=== PATIENT | male | born 1965 | race Caucasian/White ===

== ENCOUNTER 2017-01-15 13:38 | Day surgery (SDC) | payer BC ==
[~2017-01-15] VITALS: Ht 182.9 cm; Wt 151.4 kg
[2017-01-15] MEDS ORDERED: TOPROL XL100 MG PO (13:45)
[2017-01-15] MEDS ORDERED: AVAPRO300 MG PO (13:45)
[2017-01-15] MEDS ORDERED: HYDROCHLOROTHIA25 MG PO (13:45)
[2017-01-15 14:15] VITALS: BP 174/98
[2017-01-15 14:49] LABS: HEMATOCRIT 45.5 % (38.0-50.0); MCH 30.2 PG (29.0-34.0); MCHC 34.9 G/DL (30.0-36.0); MCV 86.3 FL (86-99); MEAN PLAT.VOLUME 9.5 uM^3 (9.0-12.4); PLATELET COUNT 234 K/uL (156-360); RBC DIS.WIDTH-CV 12.4 % (11.8-14.6); RBC DIS.WIDTH-SD 38.9 % (39-53); RED BLOOD COUNT 5.27 M/uL (4.00-5.50); WHITE BLOOD COUNT 10.1 K/uL (4.1-10.2)
[2017-01-15 15:12] LABS: ANION GAP 9 MEQ/L (2-14); CHLORIDE 103 MEQ/L (99-109); POTASSIUM 3.7 MEQ/L (3.7-5.4); SAMPLE HEMOLYSIS CHECK 0; SAMPLE ICTERIC CHECK 0; SAMPLE LIPEMIA CHECK 0; SODIUM 140 MEQ/L (136-147); TOTAL BILIRUBIN 0.8 MG/DL (0.0-1.0)
[2017-01-15 15:18] LABS: ALKALINE PHOSPHATASE 61 IU/L (3-129); GFR ESTIMATE (CALCULATED) > 59 mL/min/; GLUCOSE 114 mg/dL (70-99); UREA NITROGEN (BUN) 10 mg/dL (9-23)
[2017-01-15 19:05] VITALS: BP 186/105
[2017-01-15 20:11] VITALS: BP 137/75
== END 2017-01-15 20:15 | disposition home or self-care (01) ==
LOC: SDC 13:38
PROVIDERS: Ophthalmology
DX: H33.42 Traction detachment of retina, left eye (principal); I10 Essential (primary) hypertension
CPT/HCPCS: 80053; 85027; 93005; J0330; J0690; J1170; J2405; J2765; J3010; J3300

== ENCOUNTER 2017-10-17 06:47 | Emergency (ER) | payer OTHER ==
[~2017-10-17] VITALS: Ht 185.4 cm; Wt 148.9 kg
[~2017-10-17 06:47] MED LIST: AVAPRO300 MG PO; HYDROCHLOROTHIA25 MG PO; TOPROL XL100 MG PO
[2017-10-17] MEDS ORDERED: KEFLEX500 MG PO (07:42)
[2017-10-17 08:39] VITALS: BP 154/99
== END 2017-10-17 08:40 | disposition home or self-care (01) ==
LOC: EME 06:47
PROC: 0HQGXZZ Repair Left Hand Skin, External Approach (ICD-10-PCS; principal; 2017-10-17)
DX: S61.412A Laceration without foreign body of left hand, initial encounter (principal); W26.0XXA Contact with knife, initial encounter
CPT/HCPCS: 99281; 99284